=== PATIENT | male | born 1970 | race African-American/Black ===

== ENCOUNTER 2017-07-10 04:34 | Emergency (ER) | payer BC ==
[2017-07-10] MEDS ORDERED: IBUPROFEN 800 MG TABLET PO ONE (06:08)
[2017-07-10] MEDS ORDERED: PREDNISONE 20 MG TABLET PO ONE (06:08)
[2017-07-10] MEDS ORDERED: ACETAMINOPHEN 325 MG TABLET PO ONE (06:08)
--- NOTE | 2017-07-10 06:15 | ER Document Report ---
ED General - General Chief Complaint: Headache Stated Complaint: POSSIBLE RASH Time Seen by Provider: 07/10/17 05:55 Mode of Arrival: Ambulatory Information source: Patient Notes: 47 yr old male presents with complaints of acute on chronic migraine headache since . Pt notes that this headache is the same as previous headaches, denies any neuro deficits. pt denies any nausea or vomiting. Pt also notes that he awoke this morning with an itchy rash on the bilateral wrists and on the right occipital region. Pt denies any fevers or chills. denies any trauma. pt denies any recent exposure to antigens that may have caused this. - HPI Onset: Other - 4 days Onset/Duration: Persistent Quality of pain: Achy Severity: Mild Pain Level: 1 Associated symptoms: Headache, Other Exacerbated by: Denies Relieved by: Denies - pt has not taken any tylenol or motrin for the headache Similar symptoms previously: Yes Recently seen / treated by doctor: Yes - Related Data Allergies/Adverse Reactions: No Known Allergies Allergy (Unverified 07/10/17 04:35) Past Medical History - Social History Smoking Status: Never Smoker Cigarette use (# per day): No Chew tobacco use (# tins/day): No Smoking Education Provided: No Family History: Reviewed & Not Pertinent Patient has suicidal ideation: No Patient has homicidal ideation: No - Past Medical History Cardiac Medical History: Reports: Hx Hypertension - INTERMITTENT, NOT ON MEDS Renal/ Medical History: Denies: Hx Peritoneal Dialysis Review of Systems - Review of Systems Notes: REVIEW OF SYSTEMS: CONSTITUTIONAL : Denies fever, chills, or sweats. Denies recent illness. EENT: Denies eye, ear, throat, or mouth pain or symptoms. Denies nasal or sinus congestion or discharge. Denies throat, tongue, or mouth swelling or difficulty swallowing. CARDIOVASCULAR: Denies chest pain. Denies palpitations or racing or irregular heart beat. Denies ankle edema. RESPIRATORY: Denies cough, cold, or chest congestion. Denies shortness of breath, difficulty breathing, or wheezing. GASTROINTESTINAL: Denies abdominal pain or distention. Denies nausea, vomiting , or diarrhea. Denies blood in vomitus, stools, or per rectum. Denies black, tarry stools. Denies constipation. GENITOURINARY: Denies difficulty urinating, painful urination, burning, frequency, blood in urine, or discharge. MUSCULOSKELETAL: Denies back or neck pain or stiffness. Denies joint pain or swelling. SKIN: admits to itchy rash HEMATOLOGIC : Denies easy bruising or bleeding. LYMPHATIC: Denies swollen, enlarged glands. NEUROLOGICAL: admits ot headache PSYCHIATRIC: Denies anxiety or stress. Denies depression, suicidal ideation, or homicidal ideation. ALL OTHER SYSTEMS REVIEWED AND NEGATIVE. Dictation was performed using [employer] voice recognition software PHYSICAL EXAMINATION: GENERAL: Well-appearing, well-nourished and in no acute distress. HEAD: Atraumatic, normocephalic. EYES: Pupils equal round and reactive to light, extraocular movements intact, sclera anicteric, conjunctiva are normal. ENT: Nares patent, oropharynx clear without exudates. Moist mucous membranes. NECK: Normal range of motion, supple without lymphadenopathy LUNGS: Breath sounds clear to auscultation bilaterally and equal. No wheezes rales or rhonchi. HEART: Regular rate and rhythm without murmurs ABDOMEN: Soft, nontender, nondistended abdomen. No guarding, no rebound. No masses appreciated. Musculoskeletal: Normal range of motion, no pitting or edema. No cyanosis. NEUROLOGICAL: Cranial nerves grossly intact. Normal speech, normal gait. Normal sensory, motor exams PSYCH: Normal mood, normal affect. SKIN: small hives noted on the bilateral wrists and right occipital region Physical Exam - Vital signs Vitals: Temp Pulse Resp BP Pulse Ox 97.8 F 68 16 140/88 H 98 07/10/17 04:39 07/10/17 04:39 07/10/17 04:39 07/10/17 04:39 07/10/17 04:39 Course - Re-evaluation Re-evalutation: 07/10/17 06:59 pt notes the headache has been chronic since since his father and he beleives it is from the stress since this causes his migraines. pt denies any neuro deficits, denies this being sudden onset or with any neuro deficits pts rash appears allergic in nature, pt is in no distress vicki ltreat with steroids i did offer imaging , iv meds but patient prefers to go home and take oral meds , will treat at his request with the understanding that i would prefer ot watch him After performing a Medical Screening Examination, I estimate there is LOW risk for ACUTE GLAUCOMA, TEMPORAL ARTERITIS, MENINGITIS, INCRANIAL HEMORRHAGE, or ISCHEMIC STROKE thus I consider the discharge disposition reasonable. I have reevaluated this patient multiple times and no significant life threatening changes are noted. The patient and I have discussed the diagnosis and risks, and we agree with discharging home with close follow-up with the understanding that symptoms and presentations can change. We also discussed returning to the Emergency Department immediately if new or worsening symptoms occur. We have discussed the symptoms which are most concerning (e.g., changing or worsening symptoms, new numbness or weakness, vomiting, fever) that necessitate immediate return. - Vital Signs Vital signs: Temp Pulse Resp BP Pulse Ox 97.8 F 68 16 140/88 H 98 07/10/17 04:39 07/10/17 04:39 07/10/17 04:39 07/10/17 04:39 07/10/17 04:39 Discharge - Discharge Clinical Impression: Rash Migraine headache Qualifiers: Migraine type: unspecified Status migrainosus presence: without status migrainosus Intractability: not intractable Qualified Code(s): G43.909 - Migraine, unspecified, not intractable, without status migrainosus Condition: Stable Disposition: HOME, SELF-CARE Instructions: Headache ([facility]) Additional Instructions: Follow up with your physician tomorrow for further care or return to the ED IMMEDIATELY if symptoms worsen or new concerns occur. If you cannot afford to follow up with your primary care physician a list of low cost clinics have been provided at the end of your discharge papers as well. Prescriptions: Diphenhydramine HCl [Benadryl 50 mg Capsule] 1 cap PO Q6 PRN #20 capsule PRN Reason: Prednisone 60 mg PO DAILY 4 Days tablet Prochlorperazine Maleate [Compazine 10 mg Tablet] 10 mg PO Q6 #10 tablet
[2017-07-10 06:28] VITALS: BP 120/81
== END 2017-07-10 06:28 | disposition home or self-care (01) ==
LOC: ER 04:34
DX: G43.909 Migraine, unspecified, not intractable, without status migrainosus (principal); L50.9 Urticaria, unspecified; I10 Essential (primary) hypertension
CPT/HCPCS: 99283; J7512